=== PATIENT | female | born 1950 | race Caucasian/White ===

== ENCOUNTER → 2017-05-31 | Outpatient (CLI) | payer MEDICARE, OTHER ==
--- NOTE | 2017-05-31 14:54 | REPMRS ---
Patient History The patient states she had a clinical breast exam in 02/2017. Patient is postmenopausal, has history of other cancer at age 58, and had first child at age 33. Family history of breast cancer in sister at age 37, ovarian cancer in mother, and colorectal cancer in maternal grandmother at age 50 or over. Digital Woman Screen Mammo: May 31, 2017 - Exam #: [id number] Bilateral CC and MLO view(s) were taken. Technologist: Nancie Dunn Technologist Prior study comparison: May 27, 2016, digital woman screen mammo performed at [facility]. May 12, 2015, digital woman screen mammo performed at [facility]. April 24, 2014, digital woman screen mammo performed at [facility]. FINDINGS: The breast tissue is heterogeneously dense. This may lower the sensitivity of mammography. There is a moderate amount of heterogeneously dense fibroglandular tissue which is fairly symmetric. There is no interval development of dominant mass, architectural distortion, or clustered microcalcification typical of malignancy. There has been no change in the appearance of the mammogram from the prior studies. ASSESSMENT: BI-RADS/ACR category 1 mammogram. Negative. Recommendation Routine screening mammogram of both breasts in 1 year (for women over age 40). This mammogram was interpreted with the aid of an FDA-approved computer-aided dectection system. Electronically Signed By: Tristan Tejada MD 05/31/17 [id number]
== END ==
LOC: M WHC 13:46
PROVIDERS: ATTEND Nurse Practitioner Women's Health
DX: Z12.31 Encounter for screening mammogram for malignant neoplasm of breast (principal)

== ENCOUNTER 2017-10-12 07:16 | Day surgery (SDC) | payer MEDICARE, OTHER ==
[2017-10-12] MEDS: NS 1,000 ML IV (07:45)
[2017-10-12] MEDS ORDERED: PROPOFOL 200 MG/20 ML VIAL As Ordered (08:07)
[2017-10-12] MEDS ORDERED: LIDOCAINE 2% MDV 20 ML VIAL As Ordered (08:08)
== END 2017-10-12 09:16 | disposition home or self-care (01) ==
LOC: M OPP 07:16
DX: Z12.11 Encounter for screening for malignant neoplasm of colon (principal); Q43.8 Other specified congenital malformations of intestine; E78.00 Pure hypercholesterolemia, unspecified; Z79.899 Other long term (current) drug therapy; Z88.0 Allergy status to penicillin; Z88.2 Allergy status to sulfonamides; Z91.018 Allergy to other foods; Z78.0 Asymptomatic menopausal state
CPT/HCPCS: G0121

== ENCOUNTER → 2018-06-11 | Outpatient (CLI) | payer MEDICARE, OTHER | LOC: M WHC 11:30 | DX: Z12.31 Encounter for screening mammogram for malignant neoplasm of breast (principal) | CPT/HCPCS: 77067 ==

== ENCOUNTER → 2019-06-14 | Outpatient (CLI) | payer MEDICARE, OTHER ==
[~2019-06-14] MED LIST: ALEN70TA74; BIMA01SOL OU; BRIM1OPD OU; CALCTAB68 PO; ROSU5TAB5; SYSTSOL14 OU; TOBROPO; TYLE500T78 PO; [UNRECOGNIZED DRUG - CODE] OU
--- NOTE | 2019-06-14 15:30 | REPMRS ---
Patient History The patient states she had a clinical breast exam in 02/2019. Patient is postmenopausal, has history of other cancer at age 58, and had first child at age 33. Family history of breast cancer at age 37 in sister, ovarian cancer in mother, colorectal cancer at age 50 or over in maternal grandmother. No Hormone Replacement Therapy 3D TOMOSYNTHESIS WAS PERFORMED. The [facility] lifetime risk for breast cancer is 13.9%. Digital Woman Screen Mammo: June 14, 2019 - Exam #: [id number] Bilateral CC and MLO view(s) were taken. Technologist: Nancie Dunn, Technologist Prior study comparison: June 11, 2018, bilateral digital woman screen mammo performed at [facility]. May 31, 2017, digital woman screen mammo performed at [facility]. FINDINGS: The breast tissue is heterogeneously dense. This may lower the sensitivity of mammography. There has been no change in the appearance of the mammogram from the prior studies. There is a moderate amount of residual fibroglandular tissue which is fairly symmetric. There is no interval development of dominant mass, areas of architectural distortion, or clustered microcalcification typical of malignancy. Assessment: BI-RADS/ACR category 1 mammogram. Negative Mammogram. Recommendation Routine screening mammogram in 1 year (for women over age 40). This mammogram was interpreted with the aid of an FDA-approved computer-aided dectection system. Electronically Signed By: Shant Jack MD 06/14/19 [id number]
== END ==
LOC: M WHC 14:28
PROVIDERS: ATTEND Nurse Practitioner Women's Health
DX: Z12.31 Encounter for screening mammogram for malignant neoplasm of breast (principal); Z78.0 Asymptomatic menopausal state; Z80.3 Family history of malignant neoplasm of breast; Z80.41 Family history of malignant neoplasm of ovary

== ENCOUNTER → 2020-06-22 | Outpatient (CLI) | payer MEDICARE, OTHER ==
--- NOTE | 2020-06-22 13:12 | REPMRS ---
Patient History The patient states she had a clinical breast exam in February 2020. Family history of breast cancer at age 37 in sister, ovarian cancer in mother, colorectal cancer at age 50 or over in maternal grandmother. No Hormone Replacement Therapy 3D TOMOSYNTHESIS WAS PERFORMED. [facility] for [facility] 13.[facility]%. JOSE RAUL Flaherty Digital Woman Screen Mammo: June 22, 2020 - Exam #: [id number] Bilateral CC and MLO view(s) were taken. Technologist: Gwendolyn Peacock, Technologist Prior study comparison: June 14, 2019, bilateral digital woman screen mammo performed at [facility]. June 11, 2018, bilateral digital woman screen mammo performed at [facility]. FINDINGS: The breast tissue is heterogeneously dense. This may lower the sensitivity of mammography. There has been no change in the appearance of the mammogram from the prior studies. There is a moderate amount of residual fibroglandular tissue which is fairly symmetric. There is no interval development of dominant mass, areas of architectural distortion, or clustered microcalcification typical of malignancy. Assessment: BI-RADS/ACR category 1 mammogram. Negative Mammogram. Recommendation Routine screening mammogram in 1 year (for women over age 40). This mammogram was interpreted with the aid of an FDA-approved computer-aided dectection system. Electronically Signed By: Shant Jack MD 06/22/20 [id number]
--- NOTE | 2020-06-25 13:00 | DEXA ---
AP SPINE L1 - L4 0.835 -2.9 -1.3 LT FEMUR TOTAL 0.733 -2.2 -0.8 LT NECK 0.675 -2.6 -1.0 RT FEMUR TOTAL 0.750 -2.0 -0.7 RT NECK 0.696 -2.5 -0.8 TOTAL BODY TOTAL OTHER COMMENTS: There is low bone density of the hips. There is Osteoporosis of the spine. The increased density of the spine does represent significant change. The increased density of the left hip does represent significant change. The increased density of the right hip does represent significant change. The density of the spine is decreased 4.7% since the initial exam on 11/22/2004. The increased 6.4% since the most recent exam on 10/15/2014. The density of the left hip has decreased 5.9% since the initial exam on 11/22/2004. The density of the left hip has increased 12.1% since the most recent exam on 10/15/2014. The density of the right hip has decreased 4.6% since the initial exam on 11/22/2004. The density of the right hip has increased 10.5% since the most recent exam on 10/15/2014. FOLLOW-UP: Recommendation for the next bone density exam: 2 years. ROLAND
== END ==
LOC: M WHC 12:24
PROVIDERS: ATTEND Family Medicine
DX: Z12.31 Encounter for screening mammogram for malignant neoplasm of breast (principal); M81.0 Age-related osteoporosis without current pathological fracture; Z80.3 Family history of malignant neoplasm of breast; Z80.41 Family history of malignant neoplasm of ovary; M85.851 Other specified disorders of bone density and structure, right thigh; M85.852 Other specified disorders of bone density and structure, left thigh

== ENCOUNTER → 2021-07-08 | Outpatient (CLI) | payer MEDICARE, OTHER ==
[~2021-07-08] MED LIST changes: -ALEN70TA74; +ALEN70TA82
--- NOTE | 2021-07-08 16:03 | REPMRS ---
Patient History The patient states she had a clinical breast exam in February 2021. Family history of breast cancer at age 37 in sister, ovarian cancer in mother, colorectal cancer at age 50 or over in maternal grandmother. No Hormone Replacement Therapy Tomosynthesis is performed. [facility] breast density is c. [facility] Patient states no breast complaints today. Patient has signed MRS History Sheet. Digital Woman Screen Mammo: July 08, 2021 - Exam #: [id number] Bilateral CC and MLO view(s) were taken. Technologist: Gwendolyn Peacock, Technologist Prior study comparison: June 22, 2020, bilateral digital woman screen mammo performed at [facility]. June 14, 2019, bilateral digital woman screen mammo performed at [facility]. FINDINGS: The breast tissue is heterogeneously dense. This may lower the sensitivity of mammography. There has been no change in the appearance of the mammogram from the prior studies. There is a moderate amount of residual fibroglandular tissue which is fairly symmetric. There is no interval development of dominant mass, areas of architectural distortion, or clustered microcalcification typical of malignancy. Assessment: BI-RADS/ACR category 1 mammogram. Negative Mammogram. Recommendation Routine screening mammogram in 1 year (for women over age 40). This mammogram was interpreted with the aid of an FDA-approved computer-aided dectection system. Electronically Signed By: Shant Jack MD 07/08/21 [id number]
== END ==
LOC: M WHC 15:17
PROVIDERS: ATTEND Obstetrics & Gynecology
DX: Z12.31 Encounter for screening mammogram for malignant neoplasm of breast (principal); Z80.3 Family history of malignant neoplasm of breast

== ENCOUNTER → 2021-10-07 | Outpatient (CLI) | payer MEDICARE, OTHER | LOC: M RAD 10:03 | PROVIDERS: ATTEND Family Medicine | DX: E07.9 Disorder of thyroid, unspecified (principal) ==

== ENCOUNTER → 2022-07-21 | Outpatient (CLI) | payer MEDICARE, OTHER | LOC: M WHC 12:52 | PROVIDERS: ATTEND Obstetrics & Gynecology | DX: Z12.31 Encounter for screening mammogram for malignant neoplasm of breast (principal) ==

== ENCOUNTER → 2023-07-26 | Outpatient (CLI) | payer MEDICARE, OTHER ==
[~2023-07-26] MED LIST changes: +[UNRECOGNIZED DRUG - CODE] OU; -[UNRECOGNIZED DRUG - CODE] OU
== END ==
LOC: M WHC 13:20
PROVIDERS: ATTEND Nurse Practitioner Adult Health
DX: Z12.31 Encounter for screening mammogram for malignant neoplasm of breast (principal)

== ENCOUNTER → 2023-11-26 | Outpatient (CLI) | payer MEDICARE, OTHER | LOC: M SLEEP 20:00 | PROVIDERS: ATTEND Physician Assistant | DX: R40.0 Somnolence (principal) ==

== ENCOUNTER → 2024-01-14 | Outpatient (CLI) | payer MEDICARE ==
[~2024-01-14] MED LIST changes: +ROSU5TAB40; -ROSU5TAB5
== END ==
LOC: M SLEEP 20:00
PROVIDERS: ATTEND Physician Assistant
DX: G47.33 Obstructive sleep apnea (adult) (pediatric) (principal)

== ENCOUNTER → 2024-08-09 | Outpatient (CLI) | payer MEDICARE ==
[~2024-08-09] MED LIST changes: -ROSU5TAB40; +ROSU5TAB49
== END ==
LOC: M WHC 12:06
PROVIDERS: ATTEND Nurse Practitioner Adult Health
DX: Z12.31 Encounter for screening mammogram for malignant neoplasm of breast (principal)

== ENCOUNTER → 2025-08-12 | Outpatient (CLI) | payer MEDICARE ==
[~2025-08-12] MED LIST changes: -BRIM1OPD OU; +BRIM5DRO25 OU
== END ==
LOC: M WHC 14:12
PROVIDERS: ATTEND Nurse Practitioner Adult Health
DX: Z12.31 Encounter for screening mammogram for malignant neoplasm of breast (principal); R92.333 Mammographic heterogeneous density, bilateral breasts